=== PATIENT | male | born 1995 | race African-American/Black ===

== ENCOUNTER 2020-06-24 16:57 | Emergency (ER) | payer OTHER ==
[~2020-06-24] VITALS: Ht 177.8 cm; Wt 75.0 kg
[2020-06-24 17:00] VITALS: BP 166/91
--- NOTE | 2020-06-24 17:50 | PHYS DOC ---
Past Medical History Past Medical History: No Pertinent History Past Surgical History: No Surgical History Smoking Status: Never Smoker Alcohol Use: None General Adult EDM: Chief Complaint: THUMB HPI: HPI: Patient is a 24 year old male who presents with was at work using a box knife when the box might cut the inner tip of his left thumb causing an avulsion. There is no bleeding. Patient is refusing a tetanus shot. Patient is educated by a tetanus shot is important and he states he understands importance of one but he does not like shots. Patient denies any pain. Review of Systems: Review of Systems: Constitutional: Denies fever or chills. [] Eyes: Denies change in visual acuity. [] HENT: Denies nasal congestion or sore throat. [] Respiratory: Denies cough or shortness of breath. [] Cardiovascular: Denies chest pain or edema. [] GI: Denies abdominal pain, nausea, vomiting, bloody stools or diarrhea. [] : Denies dysuria. [] Musculoskeletal: Denies back pain or joint pain. [] Integument: Denies rash. +left thumb laceration.[] Neurologic: Denies headache, focal weakness or sensory changes. [] Endocrine: Denies polyuria or polydipsia. [] Lymphatic: Denies swollen glands. [] Psychiatric: Denies depression or anxiety. [] Heart Score: C/O Chest Pain: No Risk Factors: Risk Factors: DM, Current or recent (<one month) smoker, HTN, HLP, family history of CAD, obesity. Risk Scores: Score 0 - 3: 2.5% MACE over next 6 weeks - Discharge Home Score 4 - 6: 20.3% MACE over next 6 weeks - Admit for Clinical Observation Score 7 - 10: 72.7% MACE over next 6 weeks - Early Invasive Strategies Physical Exam: PE: Constitutional: Well developed, well nourished, no acute distress, non-toxic appearance. [] HENT: Normocephalic, atraumatic, bilateral external ears normal, oropharynx moist, no oral exudates, nose normal. [] Eyes: PERRLA, EOMI, conjunctiva normal, no discharge. [] Neck: Normal range of motion, no tenderness, supple, no stridor. [] Cardiovascular:Heart rate regular rhythm, no murmur [] Lungs & Thorax: Bilateral breath sounds clear to auscultation [] Abdomen: Bowel sounds normal, soft, no tenderness, no masses, no pulsatile masses. [] Skin: Warm, dry, no erythema, no rash. Left tip of thumb avusion[] Back: No tenderness, no CVA tenderness. [] Extremities: No tenderness, no cyanosis, no clubbing, ROM intact, no edema. [] Neurologic: Alert and oriented X 3, normal motor function, normal sensory function, no focal deficits noted. [] Psychologic: Affect normal, judgement normal, mood normal. [] Current Patient Data: Vital Signs: Vital Signs Date Time Temp Pulse Resp B/P (MAP) Pulse Ox O2 Delivery O2 Flow Rate FiO2 06/24/20 17:00 98.8 73 18 166/91 (116) 97 Room Air 98.8 EKG: EKG: [] Radiology/Procedures: Radiology/Procedures: [] Course & Med Decision Making: Course & Med Decision Making Pertinent Labs and Imaging studies reviewed. (See chart for details) See HPI. Alert and oriented x4. Ambulatory with a steady gait. Skin pink warm and dry. Radial pulse strong present. Full range of motion of the affected thumb and extremity. No deformity of any joints. The cut did not affect the nailbed. Nailbed is intact. Antibiotic ointment and a Band-Aid is applied. Cap refill less than 2 seconds. Laceration repair Location: Left tip of thumb avulsion 0.5cm long with 1mm depth and 5mm with Local anesthesia: None Interrupted sutures/Internal sutures: None Nerve/ligament/muscle damage: None Cleaning and irrigation: Soap and water The appropriate timeout was taken. The area was prepped and draped in the usual sterile fashion. The wound was copiously irrigated with normal saline and chlorhexidine. Patient tolerated well without complication. Dressing was applied to the area follow-up education is given to observe for signs and symptoms of infection, bleeding and to follow-up promptly if these occur. Patient can return in 48 hours for a wound recheck. Sutures to be removed in 7 to 10 days. Meño Disclaimer: Meño Disclaimer: This electronic medical record was generated, in whole or in part, using a voice recognition dictation system. Departure Departure Impression: Primary Impression: Skin avulsion Disposition: 01 HOME / SELF CARE / HOMELESS Condition: STABLE Patient Instructions: Finger Avulsion Additional Instructions: Keep the area clean and covered. Follow with the primary care if needed. Use antibiotic ointment to the area. IVANIA OSBORNE LENS MAKER Jun 24, 2020 17:50
[2020-06-24] MEDS ORDERED: NEOMY/BACITR/POLYMYXIN OINT PACKET. TP ONE (17:56)
[2020-06-24] MEDS: NEOMY/BACITR/POLYMYXIN OINT PACKET. TP ONE (17:59)
== END 2020-06-24 18:09 | disposition home or self-care (01) ==
LOC: ER 16:57
DX: S61.011A Laceration without foreign body of right thumb without damage to nail, initial encounter (principal); W26.0XXA Contact with knife, initial encounter; Y93.89 Activity, other specified; Y92.89 Other specified places as the place of occurrence of the external cause; Y99.8 Other external cause status
CPT/HCPCS: 12001; 99283

== ENCOUNTER 2020-11-22 18:30 | Emergency (ER) | payer SELFPAY ==
[~2020-11-22] VITALS: Ht 177.8 cm; Wt 90.0 kg
[2020-11-22 19:13] VITALS: BP 165/97
== END 2020-11-22 23:44 | disposition left against medical advice (07) ==
LOC: ER 18:30
DX: R50.9 Fever, unspecified (principal); Z53.21 Procedure and treatment not carried out due to patient leaving prior to being seen by health care provider